=== PATIENT | female | born 2000 | race Caucasian/White ===

== ENCOUNTER 2025-03-07 23:59 | Emergency (ER) | payer SELFPAY ==
[~2025-03-07] VITALS: Ht 167.6 cm; Wt 88.0 kg
[2025-03-08 00:11] VITALS: O2SAT 98
[2025-03-08 00:16] VITALS: BP 135/95; PULSE 82; RESP 18; TEMP 36.8; O2SAT 98
[2025-03-08 00:36] LABS: BASOPHILS % 0.3 % (0.0-2.0); EOSINOPHILS % 1.0 % (0.0-5.0); HEMATOCRIT. 37.0 % (36.0-48.0); HEMOGLOBIN. 12.5 g/dL (12.0-16.0); LYMPHOCYTES % 27.5 % (20.0-50.0); MEAN PLATELET VOLUME 8.6 fl (7.4-10.4); MONOCYTES % 9.0 % (2.0-8.0); NEUTROPHILS % 62.2 % (40.0-76.0); PLATELET 340 x1000/uL (130-400); RED BLOOD CELL COUNT 4.27 mill/uL (4.2-5.4); RED CELL DISTRIBUTION WIDTH 13.5 % (11.6-14.6)
[2025-03-08 00:48] LABS: CREATININE 0.9 mg/dL (0.6-1.0); UREA NITROGEN BLOOD 10 mg/dL (9-23)
[2025-03-08 00:50] LABS: ASPARTATE AMINOTRANSFERASE 13 IU/L (<34); BILIRUBIN DIRECT 0.1 mg/dL (<=3.0); BILIRUBIN TOTAL 0.4 mg/dL (0.1-1.0); PROTEIN TOTAL 7.4 g/dL (6.0-8.3)
[2025-03-08 00:56] LABS: B-HCG QUANTITATIVE 1 mIU/mL (<6)
== END 2025-03-08 04:09 | disposition left against medical advice (07) ==
LOC: ER 23:59
DX: R10.2 Pelvic and perineal pain (principal); D64.9 Anemia, unspecified; Z90.710 Acquired absence of both cervix and uterus
CPT/HCPCS: 36415; 76856; 80048; 80076; 84702; 85025; 99283; 99284